=== PATIENT | female | born 1950 | race Caucasian/White ===

== ENCOUNTER → 2017-01-21 | Outpatient (CLI) | payer BC ==
--- NOTE | 2017-01-22 14:09 | MY ---
EXAMINATION: Bilateral digital mammography utilizing CAD with targeted left breast ultrasound. HISTORY: Lump. Comparison is made to previous studies dated 06/23/2016, 06/19/2015. FINDINGS: Bilateral heterogeneously dense breast tissue. Within the region of concern within the l eft breast at the 6 o'clock position, there is a 1.7 cm mass noted mammographically. Sonographically there is a 1.9 x 1.1 cm anechoic cyst. There is a single septation noted within the cyst. This has increased in size from the prior mammogram. Otherwise no suspicious calcifications, masses or architectural distortions. No pathologic appearin g lymph nodes, no abnormal skin thickening or nipple inversion. CAD highlighted regions appear nor mal at this time. IMPRESSION: BI-RADS category IV -suspicious finding. Enlarging cyst with a single septation. Ultra sound-guided aspiration may be beneficial for cytologic evaluation. THE FALSE-NEGATIVE RATE OF MAMMOGRAM IS APPROXIMATELY 10%. MANAGEMENT OF A PALPABLE ABNORMALITY MUST BE BASED UPON CLINICAL GROUNDS. SENSITIVITY FOR DETECTION OF ABNORMALITIES IN DENSE BREASTS IS LOW. NOTE: A letter will be sent to the patient regarding findings. [facility] [place] [phone] - FAX [phone]
== END ==
LOC: MW.MAM 10:35
PROVIDERS: ATTEND Obstetrics & Gynecology
DX: N63 Unspecified lump in breast (principal); N60.02 Solitary cyst of left breast
CPT/HCPCS: 76642; G0204